=== PATIENT | female | born 1960 | race Caucasian/White ===

== ENCOUNTER 2016-09-08 16:02 | Emergency (ER) | payer BC, OTHER ==
[~2016-09-08] VITALS: Ht 162.6 cm; Wt 122.0 kg
[~2016-09-08 16:02] MED LIST: BREX2TAB PO; BUPR-42 PO; CLON1TAB27 PO; CODE-54 PO; CPR500T PO; DICY10CA59 PO; DICY20TA10 PO; DIPH1TAB PO; GLIP1TAB5 PO; GLYB2.5T4 PO; INSA10V SC; LIRA0.6P2 SC; LIRA0.6P2 SQ; MELA1TAB8 PO; METF-474 PO; METF500T PO; NF-ALLE180 PO; ONDA4TAB8 PO; TRIA16.5 INH; VENL37.52 PO; VORT10TA PO; VORT5TAB PO; ZOLP10TA PO
[2016-09-08] MEDS ORDERED: ELUX75TA PO (16:14)
[2016-09-08] MEDS ORDERED: KETOROLAC 30 MG/ML (TORADOL) 1 ML VIAL IV ONE (16:30)
[2016-09-08] MEDS ORDERED: ONDANSETRON 2 MG/ML (Z0FRAN) 2 ML VIAL IV ONE (16:30)
[2016-09-08] MEDS ORDERED: SODIUM CHLORIDE FLUSH 10 ML SYR IV PRN (16:30)
[2016-09-08] MEDS ORDERED: SODIUM CHLORIDE FLUSH 3 ML SYR IV PRN (16:30)
[2016-09-08 16:53] LABS: BASOPHILS % (AUTO) 0 % (0-2); EOSINOPHILS # (AUTO) 0.4 10^3uL; EOSINOPHILS % (AUTO) 3 % (0-4); LYMPHOCYTES # (AUTO) 2.3 X10^3; MEAN CORPUSCULAR HEMOGLOBIN 29.9 PG (26.0-34.0); MEAN CORPUSCULAR HGB CONC 34.1 g/dL (31.0-37.0); MEAN CORPUSCULAR VOLUME 88 FL (80-100); MEAN PLATELET VOLUME 9.8 FL (6.0-9.5); MONOCYTES # (AUTO) 0.6 X10^3; MONOCYTES % (AUTO) 5 % (3-11); NEUTROPHILS # (AUTO) 7.8 X10^3; NEUTROPHILS % (AUTO) 70 % (51-67); PLATELET COUNT 336 10^3uL (150-450); WHITE BLOOD COUNT 11.15 10^3uL (4.0-11.0)
[2016-09-08 17:06] LABS: ALBUMIN 4.1 g/dL (3.4-5.0); ANION GAP 19.6 MEQ/L (3-15); CALCULATED IONIZED CALCIUM 4.2 mg/dL (3.8-4.6); TOTAL PROTEIN 7.2 g/dL (6.4-8.5)
--- NOTE | 2016-09-08 18:10 | NUR ---
Patient is sleeping.
[2016-09-08 18:13] LABS: CLARITY,URINE Cloudy; GLUCOSE, URINE (UA) Trace (Negative); LEUKOCYTE ESTERASE ,URINE Negative (Negative); UROBILINOGEN,URINE 0.2 mg/dL (0.2-1.0)
[2016-09-08 18:19] LABS: BILIRUBIN,URINE 1+ (Negative); COLOR,URINE Dark Yellow; RBC,URINE None Seen /HPF; URINE CENTRIFUGED VOLUME 12 mL
[2016-09-08 18:20] LABS: YEAST,URINE 1+
[2016-09-08] MEDS ORDERED: FAMOTIDINE IV 20 MG in SODIUM CHLORIDE VIAL (PF) 10 ML IV ONE (18:35)
[2016-09-08] MEDS ORDERED: GI COCKTAIL 55 ML UDC PO ONE (18:35)
[2016-09-08] MEDS ORDERED: PANTOPRAZOLE IV 40 MG in SODIUM CHLORIDE FLUSH 10 ML IV ONE (18:35)
[2016-09-08] MEDS ORDERED: MAG HYDROX/AL HYDROX/SIMETH 400-400-40/5 ML (MAG-AL PLUS XS) 30 ML UDC ONE (18:37)
[2016-09-08] MEDS ORDERED: BELLADONNA/PHENOBARBITAL ELIXIR (DONNATAL) 10 ML UDC ONE (18:37)
[2016-09-08] MEDS ORDERED: LIDOCAINE 2% VISCOUS 20ML UDC PO ONE (18:37)
[2016-09-08] MEDS ORDERED: ONDAN4ODT PO (18:48)
[2016-09-08] MEDS ORDERED: ED- ONDANSETRON ODT 4 MG (ZOFRAN) 4 TABLETS/BTL PO ONE (18:50)
--- NOTE | 2016-09-08 19:08 | NUR ---
Patient report given to Stephy ODELL. Patient's blood pressure of 88/[address] Méndez. Placed in trendelenburg. Reports relief of esophageal burning after GI cocktail given. Reports cramping in abdomen 12/09.
--- NOTE | 2016-09-08 19:42 | NUR ---
Pt back to bed was up to the toilet states she had some diarrhea, but not as much as she had expected, she states that she is cramping some and a bit nauseated, states that she has not thrown up since she has been in ed, and this is her first stool since she has been here, pt states "I just don't feel good".
--- NOTE | 2016-09-08 20:30 | NUR ---
Pt ok with going home, IV dc'd and pt d/c to home
[2016-09-08 20:48] VITALS: BP 107/65
== END 2016-09-08 20:35 | disposition home or self-care (01) ==
LOC: ED 16:03
DX: R11.11 Vomiting without nausea (principal); R19.7 Diarrhea, unspecified
CPT/HCPCS: 36415; 80053; 81003; 81015; 82150; 83690; 85025; 96361; 96374; 96375; 99285; C9113; J1885; J2405; J3490; J7030; J7050; 99283

== ENCOUNTER → 2016-12-02 | Outpatient (CLI) | payer BC ==
[~2016-12-02] MED LIST changes: +ELUX75TA PO; +METH4TAB27 PO; +ONDAN4ODT PO
[2016-12-02 17:51] VITALS: BP 92/69
--- NOTE | 2016-12-02 17:51 | Urgent Care T Sheet Gen (E) ---
Intake General Temperature (Fahrenheit): 98 Pulse: 90 Blood Pressure Systolic: 92 Blood Pressure Diastolic: 69 Respirations: 18 SPO2: 96% Chief Complaint: UC Ear/Nose/Throat Complaint Description of Symptoms This 56 y/o woman is here today because of sinus symptoms that started on Friday the 29 of November. She felt congested in her nose predominantly on the right side. She is not having cough at this point but her right eye has been watery today but does not itch. Someone remarked to her that eye looked slightly red and she should have it checked out. She denies fever and sore throat. She did have a headache today which was worse this morning than presently. She is taking manas routinely. Her PCP is Dr Laboy. Source: Patient Exam Limitations: No limitations History of Present Illness Onset & Duration: Days Timing: Still present Severity: Mild Associated Symptoms: Nasal congestion Recent Trauma: No Similar Sympotms Previously: No Allergies: Coded Allergies: No Known Drug Allergies (Unverified , 08/04/16) Home Meds Active Scripts Ondansetron HCl (Zofran ODT)4 Mg Tab.rapdis4 Mg PO Q4H #10 TAB Prov:KENA FREEMAN MD 09/08/16 Ondansetron (Zofran ODT)4 Mg Tab.rapdis4 Mg PO Q4H nausea #10 TAB Ref 0 Prov:TABATHA BANKS MD 08/05/16 Reported Medications Eluxadoline (Viberzi)75 Mg Zkskli93 Mg PO DAILY 09/08/16 Liraglutide (Victoza)18 Mg/3 Ml Pen.injctr1.8 Ml SC HS 08/04/16 Insuln Asp Prt/Insulin Aspart (Novolog 70/30 Mix)10 Units/0.1 Ml Susp20 Units SC EVENING 08/04/16 Vortioxetine Hydrobromide (Brintellix)10 Mg Kbjstx55 Mg PO DAILY 08/04/16 Metformin HCl (Metformin HCl ER)1,000 Mg Tab.er.241,000 Mg PO BID 04/26/16 Insuln Asp Prt/Insulin Aspart (Novolog 70/30 Mix)10 Units/0.1 Ml Susp40 Units SC MORNING 06/13/15 Respiratory Constitutional Symptoms: No syptoms reported EENTM: See HPI Eye tearing (right) Nose CongestionNo Throat pain Respiratory: No symptoms reported Cardiovascular: No symptoms reported Gastrointestinal/Abdominal: No symptoms reported Genitourinary: No symptoms reported Musculoskeletal: No symptoms reported Skin: No symptoms reported Neurological: No symptoms reported Hematologic/Lymphatic: No symptoms reported Immunologic/Allergies: No symptoms reported All Other Systems Reviewed Remaining Systems: All other systems reviewed with negative findings Past Lqcfdks-Pkfkpd-Dlyhtk Hx Patient's Social History Alcohol Use: Denies Use Smoking Status: Never smoker Recent foreign travel: No Surgeries/Hospitalizations Hospitalization/Surgery Hx: CSECTION, ORTHOSCOPIC ON R KNEE, IBBS, DIABETIC, ALLERGIES, TONSILS, L ROTATOR CUFF Respiratory Respiratory History: Sleep Apnea Cardiovascular Cardiovascular History: None Reproductive System Sexually Transmitted Diseases: No Gastrointestinal GI/Endocrine History: Irritable bowel Diabetes Diabetes: IDDM Onset: 17 years HEENT Impaired Vision: Glasses Hearing Impaired: None Psychosocial Behavior Disorders: Depression, Sleep Difficulties Physical Exam Physical Exam General Appearance: WD/WN No apparent distress Eyes, Ears, Nose, Throat Ex: PERRL/EOMI Normal ENT inspection TMs normal Pharynx normal Other (right sclera and conjunctivae slightly injected when compared to the left eye and also watery. No matter seen to either eye.) Neck Exam: Non tender Full range of motion Supple Normal inspection Normal thyroid Respiratory Exam: Chest non-tender Lungs clear Normal breath sounds No respiratory distress No accessory muscles used Cardiovascular Exam: Regular rate, rhythm No edema No gallop No JVD No murmur Skin Exam: Normal color Warm/dry/intact No rashes No embolic lesions Neurologic/Psychiatric Exam: Oriented times 4 CN's II-X nml No motor deficits No sensory deficits Mood/affect nml Departure Urgent Care Impression Chief Complaint: UC Ear/Nose/Throat Complaint Impression: Primary Impression: Upper respiratory infection Departure Disposition: 01 HOME OR SELF-CARE Condition: Stable Referrals: CAROLYN LABOY MD (PCP) Additional Instructions: I have advised the patient I believe this looks viral. However to help with her sinus pressure she will take the steroid taper. Additionally for her right eye I have suggested natural tears over the counter and would like for her to apply 2 drops to the right eye every 2 hours while awake until clearing. If no improvement in symptoms by weeks end she should give Dr. Laboy's office a call. Scripts Methylprednisolone (Medrol Dosepack)21 Tab/Pkt Jgqfty29 Tab PO DAILY Inflammation #21 PKT Ref 0 Prov:SWEAT,JUSTIN PA 4/3/17 End of report . JUSTIN SANTIAGO Dec 02, 2016 17:51
== END ==
LOC: MHUC 17:17
PROVIDERS: ATTEND Physician Assistant Medical
DX: J06.9 Acute upper respiratory infection, unspecified (principal)
CPT/HCPCS: 99213

== ENCOUNTER 2016-12-21 23:49 | Emergency (ER) | payer BC, OTHER ==
[~2016-12-21] VITALS: Ht 162.6 cm; Wt 127.3 kg
--- OUTSIDE RECORDS SUMMARY | 2016-12-21 23:53 | XMS REPORT | Referral Summary ---
Author Author [facility] Organization [facility] Address Unknown Phone Unavailable Care Team Providers Care Supervisor Slitting [employer] Name Role Phone Benoit Jordan PCP [phone] Encounter Date(s): 06/06/16 - 06/06/16 [facility] [address] [place] [address] [facility] Discharge Diagnosis: Diabetes- Type 2 Discharge Diagnosis: prison current use of insulin Discharge Diagnosis: Screening for thyroid disorder Discharge Diagnosis: Goiter Discharge Disposition: 01-Home or Self Care Attending Physician: Shantal Osorio APRN Admitting Physician: Shantal Osorio APRN Vital Signs Most recent to 1 oldest [Reference Range]: Peripheral Pulse 76 bpm Rate [60-100 bpm] (06/06/16 10:30 AM) Blood Pressure 110/70 mmHg [90-140/60-90 mmHg] (06/06/16 10:30 AM) Problem List Condition Effective Dates Status Health Status Informant Obesity, Active unspecified(Confirme d) Goiter(Confirmed) Active Diabetes- Type 1991 Active 2(Confirmed) Unspecified vitamin 03/01/11 Active D deficiency(Confirmed ) Allergies, Adverse Reactions, Alerts No Known Allergies Medications clonazePAM 0.5 mg oral tablet 1 tabs, Oral, Bedtime (once a day), 0 Refill(s) Start Date: 12/06/14 Status: OrderedEffexor XR 75 mg oral capsule, extended release 1 caps, Oral, Daily, 0 Refill(s) Start Date: 06/10/14 Status: OrderedGlucagon Emergency Kit for Low Blood Sugar 1 mg injection See Instructions, SubCutaneous Once, 0 Refill(s) Start Date: 06/10/14 Status: OrderedGlucometer Lancets (DME) DME Item 28 gauge QID X3 days/wk, See Instructions, # 1 Each, 0 Refill(s), Supply Start Date: 06/10/14 Status: OrderedGlucometer strips (DME) DME Item Freestyle Lite test strips Check BS QID Dx code E11.8, See Instructions, # 400 Each, 3 Refill(s), Pharmacy: [facility] [id number], Freestyle Lite test strips; Check BS QID; Dx code E11.8, Supply Start Date: 01/16/16 Status: OrderedInsulin Pin [place] (DME) DME Item NovoFine 30- 30x 1/3 Change daily for insulin and victoza 1 eto=604 needles, See Instructions, # 2 boxes, 6 Refill(s), [facility] [id number], NovoFine 30- 30x 1/3; Change daily for insulin and victoza; 1 box= 100 needles, [place]... Start Date: 12/06/14 Status: OrderedmetFORMIN 1000 mg oral tablet, extended release 1,000 mg 1 tabs, Oral, BID, # 180 tabs, 3 Refill(s), [facility] [id number], 1 tabs Oral BID Start Date: 06/06/16 Status: OrderedMiscellaneous DME DME Item Take 1 tablet TRINELIX 10 mg oral daily, See Instructions, # 1 Each, 0 Refill(s), Supply Start Date: 06/06/16 Status: OrderedNovoLOG Mix 70/30 FlexPen subcutaneous suspension See Instructions, 38 UNITS BEFORE BREAKFAST ; 18 UNITS BEFORE SUPPER, # 45 mL, 5 Refill(s), [id number], 38 UNITS BEFORE BREAKFAST ; 18 UNITS BEFORE SUPPER Start Date: 08/08/15 Status: OrderedVictoza 18 mg/3 mL subcutaneous solution 1.8 mg, SubCutaneous, Daily, # 9 mL, 5 Refill(s), Pharmacy: [id number], 1.8 mg SubCutaneous Daily Start Date: 06/06/16 Status: Ordered Results Chemistry Most recent to 1 oldest [Reference Range]: Sodium Lvl [135-144 142 mEq/L mEq/L] (06/06/16 11:00 AM) Potassium Lvl 4.7 mEq/L [3.5-5.2 mEq/L] (06/06/16 11:00 AM) Chloride [99-111 108 mEq/L mEq/L] (06/06/16 11:00 AM) CO2 [22-31 mEq/L] 22 mEq/L (06/06/16 11:00 AM) AGAP [3-20] 12 (06/06/16 11:00 AM) BUN [10-20 mg/dL] 10 mg/dL (06/06/16 11:00 AM) Glucose Lvl [70-99 156 mg/dL mg/dL] *HI* (06/06/16 11:00 AM) Creatinine Lvl 0.81 mg/dL [0.57-1.11 mg/dL] (06/06/16 11:00 AM) eGFR [>60 mL/min] >60 mL/min 1 (06/06/16 11:00 AM) Calcium Lvl 9.4 mg/dL [8.9-10.5 mg/dL] (06/06/16 11:00 AM) ALT [0-55 U/L] 32 U/L (06/06/16 11:00 AM) AST [5-34 U/L] 29 U/L (06/06/16 11:00 AM) T4 Free [0.7-1.5 1.1 ng/dL ng/dL] (06/06/16 11:00 AM) TSH [0.35-4.94] 2.20 (06/06/16 11:00 AM) Hgb A1c [4.1-5.6 %] 9.1 % *HI* (06/06/16 11:00 AM) eAvg Glucose 214.5 mg/dL (06/06/16 11:00 AM) 1Result Comment: Multiply eGFR results by 1.21 for race. Immunizations No data available for this section Procedures No data available for this section Social History Social History Type Response Smoking Status Never smoker Assessment and Plan Extracted from: Title: Office Visit Note Author: Shantal Osorio APRN Date: 06/06/16 Assessment/Plan 1.Diabetes- Type 2 1. check blood sugars fasting and 2 hours after meals 3-7 days per week 2. continue current insulin doses 3. continue metformin 4. restart victoza and copay card provided 5. rotate injection sites 6. obtain new thyroid ultrasound 7. call weekly blood sugars to office over next 10 days I discussed the patient with the preceptor. Ordered: Albumin/Creatinine Ratio, Urine ALT AST Basic Metabolic Panel Free T4 Hemoglobin A1c Office Visit Level 4 Est 17602 TSH 3rd Generation [place] Thyroid 2.prison current use of insulin Ordered: Albumin/Creatinine Ratio, Urine ALT AST Basic Metabolic Panel Free T4 Hemoglobin A1c Office Visit Level 4 Est 02327 TSH 3rd Generation US Thyroid 3.Goiter Ordered: Albumin/Creatinine Ratio, Urine ALT AST Basic Metabolic Panel Free T4 Hemoglobin A1c Office Visit Level 4 Est 33598 TSH 3rd Generation US Thyroid 4.Screening for thyroid disorder Ordered: Albumin/Creatinine Ratio, Urine ALT AST Basic Metabolic Panel Free T4 Hemoglobin A1c Office Visit Level 4 Est 09754 TSH 3rd Generation US Thyroid Extracted from: Title: Ambulatory Patient Education Author: Shantal Osorio APRN Date: 06/06/16 Obstetrics and Gynecology Diabetes and Sick Day Management Blood sugar (glucose) can be more difficult to control when you are sick. Colds , fever, flu, nausea, vomiting, and diarrhea are all examples of common illnesses that can cause problems for people with diabetes. Loss of body fluids (dehydration) from fever, vomiting, diarrhea, infection, and the stress of a sickness can all cause blood glucose levels to increase. Because of this, it is very important to take your diabetes medicines and to eat some form of carbohydrate food when you are sick. Liquid or soft foods are often tolerated, and they help to replace fluids. HOME CARE INSTRUCTIONS These main guidelines are intended for managing a short-term (24 hours or less) sickness: Take your usual dose of insulin or oral diabetes medicine. An exception would be if you take any form of metformin. If you cannot eat or drink, you can become dehydrated and should not take this medicine. Continue to take your insulin even if you are unable to eat solid foods or are vomiting. Your insulin dose may stay the same, or it may need to be increased when you are sick. You will need to test your blood glucose more often, generally every 2 4 hours. If you have type 1 diabetes, test your urine for ketones every 4 hours. If you have type 2 diabetes, test your urine for ketones as directed by your health care provider. Eat some form of food that contains carbohydrates. The carbohydrates can be in solid or liquid form. You should eat 4550 g of carbohydrates every 3 4 hours. Replace fluids if you have a fever, vomit, or have diarrhea. Ask your health care provider for specific rehydration instructions. Watch carefully for the signs of ketoacidosis if you have type 1 diabetes. Call your health care provider if any of the following symptoms are present, especially in children: Moderate to large ketones in the urine along with a high blood glucose level. Severe nausea. Vomiting. Diarrhea. Abdominal pain. Rapid breathing. Drink extra liquids that do not contain sugar such as water. Be careful with wftr-ywl-nkkkymp medicines. Read the labels. They may contain sugar or types of sugars that can increase your blood glucose level. Food Choices for Illness All of the food choices below contain about 15 g of carbohydrates. Plan ahead and keep some of these foods around. to cup carbonated beverage containing sugar. Carbonated beverages will usually be better tolerated if they are opened and left at room temperature for a few minutes. of a twin frozen ice pop. cup regular gelatin. cup juice. cup ice cream or frozen yogurt. cup cooked cereal. cup sherbet. 1 cup clear broth or soup. 1 cup cream soup. cup regular custard. cup regular pudding. 1 cup sports drink. 1 cup plain yogurt. 1 slice toast. 6 squares saltine crackers. 5 vanilla wafers. SEEK MEDICAL CARE IF: You are unable to drink fluids, even small amounts. You have nausea and vomiting for more than 6 hours. You have diarrhea for more than 6 hours. Your blood glucose level is more than 240 mg/dL, even with additional insulin. There is a change in mental status. You develop an additional serious sickness. You have been sick for 2 days and are not getting better. You have a fever. SEEK IMMEDIATE MEDICAL CARE IF: You have difficulty breathing. You have moderate to large ketone levels. MAKE SURE YOU: Understand these instructions. Will watch your condition. Will get help right away if you are not doing well or get worse. This information is not intended to replace advice given to you by your health care provider. Make sure you discuss any questions you have with your health care provider. Document Released: 08/20/2004 Document Revised: 09/08/2015 Document Reviewed: [facility] Patient Information 2016 [employer] [facility]. No follow up information was provided.
[2016-12-22] MEDS ORDERED: OMEP20CA12 PO (00:13)
[2016-12-22] MEDS ORDERED: MELA1TAB19 PO (00:13)
[2016-12-22] MEDS ORDERED: DICY10CA12 PO (00:13)
[2016-12-22] MEDS ORDERED: VILA10TA PO (00:13)
[2016-12-22] MEDS ORDERED: CLON1TAB3 PO (00:13)
[2016-12-22] MEDS ORDERED: ONDANSETRON 2 MG/ML (Z0FRAN) 2 ML VIAL ONE (00:38)
[2016-12-22] MEDS ORDERED: SODIUM CHLORIDE FLUSH 3 ML SYR IV ONE (00:40)
[2016-12-22] MEDS ORDERED: SODIUM CHLORIDE FLUSH 10 ML SYR IV PRN (00:40)
[2016-12-22] MEDS ORDERED: ONDANSETRON 2 MG/ML (Z0FRAN) 2 ML VIAL IV ONE (00:40)
[2016-12-22 00:51] LABS: BASOPHILS % (AUTO) 0 % (0-2); EOSINOPHILS % (AUTO) 0 % (0-4); LYMPHOCYTES # (AUTO) 2.3 X10^3; MEAN CORPUSCULAR HEMOGLOBIN 28.7 PG (26.0-34.0); MEAN CORPUSCULAR VOLUME 87 FL (80-100); MEAN PLATELET VOLUME 9.5 FL (6.0-9.5); MONOCYTES # (AUTO) 0.6 X10^3; MONOCYTES % (AUTO) 5 % (3-11); NEUTROPHILS # (AUTO) 8.1 X10^3; NEUTROPHILS % (AUTO) 73 % (51-67); PLATELET COUNT 312 10^3uL (150-450); WHITE BLOOD COUNT 11.04 10^3uL (4.0-11.0)
[2016-12-22 00:58] LABS: ALBUMIN 3.9 g/dL (3.4-5.0); ANION GAP 14.3 MEQ/L (3-15); CALCULATED IONIZED CALCIUM 3.9 mg/dL (3.8-4.6); TOTAL PROTEIN 7.1 g/dL (6.4-8.5)
[2016-12-22 01:07] LABS: BILIRUBIN,URINE Negative (Negative); CLARITY,URINE Clear; COLOR,URINE Yellow; GLUCOSE, URINE (UA) Negative (Negative); LEUKOCYTE ESTERASE ,URINE Trace (Negative); PH,URINE 5.5 (5.0 - 8.0); UROBILINOGEN,URINE 0.2 mg/dL (0.2-1.0)
[2016-12-22] MEDS ORDERED: HYDROmorphone 1 MG/ML (DILAUDID) SYRINGE IV ONE (01:15)
[2016-12-22 01:17] LABS: RBC,URINE 0-2 /HPF
[2016-12-22 01:19] LABS: URINE CENTRIFUGED VOLUME <10mL Unspun
--- NOTE | 2016-12-22 01:26 | NUR ---
PT DID THROW UP 375 ML UNDIGESTED FOOD AFTER GIVEN DILAUDID IVP
[2016-12-22] MEDS ORDERED: GI COCKTAIL 55 ML UDC PO ONE (01:45)
[2016-12-22] MEDS ORDERED: LIDOCAINE 2% VISCOUS 20ML UDC PO ONE (01:49)
[2016-12-22] MEDS ORDERED: BELLADONNA/PHENOBARBITAL ELIXIR (DONNATAL) 10 ML UDC ONE (01:49)
[2016-12-22] MEDS ORDERED: MAG HYDROX/AL HYDROX/SIMETH 400-400-40/5 ML (MAG-AL PLUS XS) 30 ML UDC ONE (01:49)
[2016-12-22 02:13] VITALS: BP 142/54
[2016-12-26] MEDS ORDERED: PROM25TA14 PO (14:55)
== END 2016-12-22 02:23 | disposition home or self-care (01) ==
LOC: ED 23:50
DX: R11.2 Nausea with vomiting, unspecified (principal); R19.7 Diarrhea, unspecified
CPT/HCPCS: 36415; 80053; 81003; 81015; 83690; 85025; 87088; 96361; 96374; 96375; 99283; J1170; J2405; J7030; 99282

== ENCOUNTER → 2016-12-26 | Outpatient (CLI) | payer BC ==
[~2016-12-26] MED LIST changes: +CLON1TAB3 PO; +DICY10CA12 PO; +MELA1TAB19 PO; +OMEP20CA12 PO; +PROM25TA14 PO; +VILA10TA PO
[2016-12-26 15:09] VITALS: BP 131/79
--- NOTE | 2016-12-26 15:09 | Urgent Care T Sheet Gen (E) ---
Intake General Temperature (Fahrenheit): 98.5 Pulse: 90 Blood Pressure Systolic: 131 Blood Pressure Diastolic: 79 Respirations: 18 SPO2: 96 Description of Symptoms Patient presents with nausea, vomiting, diarrhea and abdominal bloating since FridayDecember 21. Patient was seen at the ER where workup, including CBC, CMP , Lipase, UA, were unremarkable. Patient was believed to be having adverse reaction to her antidepressant. Was given a GI cocktail in the ER and sent home with Cristiano which is helping some but not for long. Patient has a history of GI issues for which she sees Dr Cabral at [facility]. Recent upper GI was unremarkable. Patient also has a history of diabetes for which she uses insulin and oral meds. Patient had been taking Trintellix however was switched to Viibryd. Last dose of Trintellix was on Friday. While in the ER, patient was told to stop taking the Viibryd meaning her last dose of that medication was Friday. History of Present Illness Allergies: Coded Allergies: No Known Allergies (Verified Allergy, Unknown, 12/22/16) Home Meds Active Scripts Ondansetron (Zofran ODT)4 Mg Tab.rapdis4 Mg PO Q4H nausea #10 TAB Ref 0 Prov:TABATHA BANKS MD 08/05/16 Reported Medications Omeprazole 20 Mg Capsule.dr20 Mg PO DAILY 12/22/16 Melatonin/Pyridoxine HCl (B6) (Melatonin 10 mg Tablet)1 Each Tab.mphase1 Each PO HS 12/22/16 Dicyclomine HCl 10 Mg Yqhhglt67 Mg PO NEEDED 12/22/16 Clonazepam 1 Mg Tablet1 Mg PO HS 12/22/16 Vilazodone Hydrochloride (Viibryd)10 Mg Uctaec00 Mg PO DAILY 12/22/16 Liraglutide (Victoza)18 Mg/3 Ml Pen.injctr1.8 Ml SC HS 08/04/16 Insuln Asp Prt/Insulin Aspart (Novolog 70/30 Mix)10 Units/0.1 Ml Susp20 Units SC EVENING 08/04/16 Metformin HCl (Metformin HCl ER)1,000 Mg Tab.er.241,000 Mg PO BID 04/26/16 Insuln Asp Prt/Insulin Aspart (Novolog 70/30 Mix)10 Units/0.1 Ml Susp40 Units SC MORNING 10/13/15 Discontinued Reported Medications Eluxadoline (Viberzi)75 Mg Clpwju75 Mg PO DAILY 09/08/16 Vortioxetine Hydrobromide (Brintellix)10 Mg Fhlphm33 Mg PO DAILY 08/04/16 Discontinued Scripts Methylprednisolone (Medrol Dosepack)21 Tab/Pkt Pgwtrm55 Tab PO DAILY Inflammation #21 PKT Ref 0 Prov:JUSTIN SANTIAGO ANA 12/02/16 Ondansetron HCl (Zofran ODT)4 Mg Tab.rapdis4 Mg PO Q4H #10 TAB Prov:KENA FREEMAN MD 09/08/16 Respiratory Constitutional Symptoms: No Fever, Malaise EENTM: No symptoms reported Respiratory: No symptoms reported Cardiovascular: No symptoms reported Gastrointestinal/Abdominal: Abdominal pain (bloating) Diarrhea Nausea Vomiting All Other Systems Reviewed Remaining Systems: All other systems reviewed with negative findings Past Bcixfok-Wrdhjk-Lhewzy Hx Patient's Social History Alcohol Use: Denies Use Smoking Status: Never smoker Recent foreign travel: No Surgeries/Hospitalizations Hospitalization/Surgery Hx: CSECTION, ORTHOSCOPIC ON R KNEE, IBBS, DIABETIC, ALLERGIES, TONSILS, L ROTATOR CUFF Respiratory Respiratory History: Sleep Apnea Comment: C PAP AT HS Cardiovascular Cardiovascular History: None Reproductive System Sexually Transmitted Diseases: No Gastrointestinal GI/Endocrine History: Irritable bowel Diabetes Diabetes: IDDM Onset: 17 years HEENT Impaired Vision: Glasses Hearing Impaired: None Psychosocial Behavior Disorders: Other, See Comment Physical Exam Physical Exam General Appearance: WD/WN Mild distress (clearly is uncomfortable) Respiratory Exam: Lungs clear Normal breath sounds Cardiovascular Exam: Regular rate, rhythm GI/ Exam: Abnormal bowel sound (hyperactive bowel sounds in all quadrants. ) Tenderness (over gastric, epigastric and umbilical regions. abdomen is bloated.)No Guarding, No Rebound Departure Urgent Care Impression Impression: Primary Impression: Nausea vomiting and diarrhea Additional Impression: Adverse reaction to antidepressant drug Qualified Code: T43.205A - Adverse effect of unspecified antidepressants, initial encounter Departure Disposition: HOME OR SELF-CARE Condition: Stable Referrals: CAROLYN TUCKER MD (PCP) Additional Instructions: Long discussion with patient regarding workup, meds, etc. The patient had a complete workup at the ER on Friday. CBC showed no signs of infection, kidneys were fine, lipase was normal. I absolutely believe her GI symptoms are adverse reactions to her antidepressant drugs. The Trintellix, which was stopped on Friday, has a 66hr half life. It will take close to 2 weeks for that medication to completely leave her system and the most common side effects are GI related. The viibryd, which was stopped on Friday, has a much shorter half life and should be completely out of her system by today. I believe the linger GI symptoms are due to the Trintellix. Since the zofran isn't giving lasting relief, I have switched her to Promethazine 25mg q 4-6 hrs prn. She may also take either Maalox or Milk of Mag for additional symptom relief. Cautioned the patient that the Promethazine will most likely make her drowsy. Informed her that I will carbon copy Dr Cabral to today's note, but I also asked her to call their office to see if they'd like to see her as well. Return as needed or present to the ER if symptoms worsen or change. By this time next week, the Trintellix should be out of her system. Patient understands DC instructions. All questions were answered. Scripts Promethazine HCl 25 Mg Jvjhms57 Mg PO QID PRN NAUSEA #20 TAB Ref 1 25mg tab po q 4-6 hrs prn nausea Prov:BRETT RYAN 12/26/16 End of report . BRETT RYAN Dec 26, 2016 15:09
== END ==
LOC: MHUC 14:18
PROVIDERS: ATTEND Physician Assistant
DX: R11.2 Nausea with vomiting, unspecified (principal); R19.7 Diarrhea, unspecified; T43.295A Adverse effect of other antidepressants, initial encounter
CPT/HCPCS: 99213